=== PATIENT | male | born 1950 | race Caucasian/White ===

== ENCOUNTER → 2020-04-20 | Outpatient (CLI) | payer BC, MEDICARE | LOC: LAB EV 13:57 → LAB SHORT 13:57 | DX: B34.9 Viral infection, unspecified (principal); Z20.828 Contact with and (suspected) exposure to other viral communicable diseases | CPT/HCPCS: U0003 ==

== ENCOUNTER → 2022-05-14 | Outpatient (CLI) | payer MEDICARE | LOC: LAB SHORT 06:00 → LAB 06:00 | PROVIDERS: Internal Medicine | DX: R82.998 Other abnormal findings in urine (principal) | CPT/HCPCS: 81050; 84156 ==

== ENCOUNTER → 2022-08-11 | Outpatient (CLI) | payer MEDICARE ==
[2022-08-11 19:18] LABS: Protein, Urine Random 81.5 mg/dL (0.0-11.9); Protein/Creat Ratio, Ur Random 0.6
== END | disposition home or self-care (01) ==
LOC: LAB 16:10 → LAB SHORT 16:10
PROVIDERS: Internal Medicine Nephrology
DX: N18.32 Chronic kidney disease, stage 3b (principal)
CPT/HCPCS: 82570; 84156

== ENCOUNTER → 2025-05-17 | Outpatient (CLI) | payer MEDICARE | LOC: LAB 08:00 | DX: I12.9 Hypertensive chronic kidney disease with stage 1 through stage 4 chronic kidney disease, or unspecified chronic kidney disease (principal); N18.4 Chronic kidney disease, stage 4 (severe); N20.0 Calculus of kidney ==

== ENCOUNTER → 2025-05-25 | Outpatient (CLI) | payer MEDICARE ==
[2025-06-01 13:33] LABS: CALCIUM, URINE - PER 24H 13 mg/d (100-250); CALCIUM, URINE - PER VOLUME 1.3 mg/dL; CHLORIDE, URINE - PER 24H 64 mmol/d (140-250); CHLORIDE, URINE - PER VOLUME 64 mmol/L; CITRIC ACID, URINE - PER 24H 215 mg/d (320-1240); CITRIC ACID,URINE - PER VOLUME 215 mg/L; CREATININE, URINE - PER 24H 1380 mg/d (800-2100); CREATININE, URINE - PER VOLUME 138 mg/dL; HOURS COLLECTED 24 hr; MAGNESIUM, URINE - PER VOLUME 3.1 mg/dL; MAGNESIUM, URINE PER 24H 31 mg/d (12-199); OXALATE, URINE - PER 24H 16 mg/d (16-49); OXALATE, URINE - PER VOLUME 16 mg/L; PHOSPHORUS, URINE - PER 24H 700 mg/d (400-1300); PHOSPHORUS, URINE - PER VOLUME 70 mg/dL; POTASSIUM, URINE - PER 24H 45 mmol/d (25-125); POTASSIUM, URINE - PER VOLUME 45 mmol/L; SODIUM, URINE - PER 24H 78 mmol/d (51-286); SODIUM, URINE - PER VOLUME 78 mmol/L; SULFATE, URINE - PER 24H 19 mmol/d (6-30); SULFATE, URINE - PER VOLUME 19 mmol/L; URIC ACID, URINE - PER 24H 224 mg/d (250-750); URIC ACID, URINE - PER VOLUME 22.4 mg/dL; URINE SUPERSATURATION INTERP Normal; URINE SUPERSATURATION, CAHPO4 0.07; URINE SUPERSATURATION, CAOX 0.62; URINE SUPERSATURATION, UA CALC 0.96
== END | disposition home or self-care (01) ==
LOC: LAB SHORT 09:45 → LAB 09:45 → LAB SHORT 16:03
PROVIDERS: Internal Medicine Nephrology
DX: N20.0 Calculus of kidney (principal)
CPT/HCPCS: 81003; 82131; 82140; 82340; 82436; 82507; 82570; 83735; 83935; 83945; 84105; 84133; 84300; 84392; 84560